=== PATIENT | male | born 1970 | race Caucasian/White ===

== ENCOUNTER 2020-10-27 12:37 | Emergency (ER) | payer OTHER ==
[~2020-10-27] VITALS: Ht 172.7 cm; Wt 83.9 kg
[2020-10-27] MEDS ORDERED: ZPAK PO (13:56)
[2020-10-27] MEDS ORDERED: PREDNISONE 20 M20 MG PO (13:56)
[2020-10-27] MEDS ORDERED: VENTOLIN HFA 1818 GM INH (13:56)
[2020-10-27 14:45] VITALS: BP 138/98
== END 2020-10-27 14:45 | disposition home or self-care (01) ==
LOC: M.ERS 12:37
DX: U07.1 COVID-19 (principal)